=== PATIENT | female | born 1995 | race Caucasian/White ===

== ENCOUNTER 2017-11-05 12:03 | Emergency (ER) | payer SELFPAY ==
[2017-11-05 12:15] VITALS: TEMP 97.3; O2SAT 100
--- NOTE | 2017-11-05 12:59 | ED.PDOC ---
History of Present Illness - General Chief Complaint: Respiratory Problem Stated Complaint: trouble breathing,chest discomfort Time Seen by Provider: 11/05/17 12:24 Source: patient Exam Limitations: no limitations - History of Present Illness Comments: Alyce Pisano 21 y/o female seen in er today with sharp chest pains ,left arm shaky,pain numbness left leg,has also non productive cough since yesterday afternoon.no chronic medical problems,no ill contact Timing/Duration: yesterday Cough Quality/Degree: dry cough Possible Cause: no prior episodes Improving Factors: nothing Worsening Factors: nothing Associated Symptoms: other - see hpi Respiratory Risk Factors: no cause identified Allergies/Adverse Reactions: Allergies Sulfa Antibiotics Allergy (Verified 11/05/17 12:15) Home Medications: Ambulatory Orders NK [NK] 11/05/17 Review of Systems - Review of Systems Constitutional: States: no symptoms reported EENTM: States: no symptoms reported Respiratory: States: see HPI Cardiology: States: see HPI Gastrointestinal/Abdominal: States: no symptoms reported Genitourinary: States: no symptoms reported Musculoskeletal: States: no symptoms reported Skin: States: no symptoms reported Neurological: States: no symptoms reported All other Systems: Reviewed and Negative, No Change from Baseline Past Medical History (General) - Patient Medical History Hx Asthma: No Hx Congestive Heart Failure: No Hx Diabetes: No Surgical History: no surgical history - Vaccination History Hx Influenza Vaccination: Yes - Social History Hx Tobacco Use: No - Female History Patient is a Female of Child Bearing Age (10 -59 yrs old): Yes Hx Last Menstrual Period: 10/28/17 Patient : No Family Medical History - Family History Mother Family History: Unknown Living Status: Unknown Physical Exam - Physical Exam General Appearance: Alert, Comfortable, No apparent distress Eye Exam: bilateral normal ENT Exam: normal ENT inspection, TMs normal, pharynx normal Neck: non-tender, full range of motion, supple Respiratory: chest non-tender, lungs clear, normal breath sounds Cardiovascular/Chest: normal peripheral pulses, regular rate, rhythm, no murmur Gastrointestinal/Abdominal: normal bowel sounds, non tender, soft, no organomegaly Extremity: normal range of motion, normal inspection, no calf tenderness Neurologic: no motor/sensory deficits, alert, normal mood/affect, oriented x 3 Skin Exam: normal color, warm/dry Progress - Progress Progress: 11/05/17 13:09 Last Vital Signs Temp 97.3 F L 11/05/17 12:12 Pulse 101 H 11/05/17 12:12 Resp 16 11/05/17 12:21 BP 148/59 11/05/17 12:12 Pulse Ox 100 11/05/17 12:12 - Results/Orders Results/Orders: Laboratory Tests 11/05/17 11/05/17 11/05/17 13:36 13:36 13:36 WBC 9.0 RBC 4.94 Hgb 13.5 Hct 40.5 MCV 81.8 MCH 27.2 MCHC 33.3 RDW 13.9 Plt Count 282 MPV 8.9 Absolute Neuts (auto) 6.20 Absolute Lymphs (auto) 1.90 Absolute Monos (auto) 0.90 H Absolute Eos (auto) 0.10 Absolute Basos (auto) 0.00 Neutrophils % 68.2 Lymphocytes % 20.8 Monocytes % 9.7 H Eosinophils % 0.8 L Basophils % 0.5 D-Dimer, Quantitative Sodium 141 Potassium 3.6 Chloride 107 Carbon Dioxide 26 Anion Gap 11.6 L BUN 9 Creatinine 0.64 BUN/Creatinine Ratio 14.1 Random Glucose 82 Serum Osmolality 279.0 Calcium 9.5 Total Bilirubin 0.2 AST 19 ALT 13 Alkaline Phosphatase 73 L Serum Total Protein 7.8 Albumin 4.0 Globulin 3.8 H Albumin/Globulin Ratio 1.1 Serum HCG, Qual Urine Color Urine Appearance Urine pH Ur Specific [place] Urine Protein Urine Glucose (UA) Urine Ketones Urine Blood Urine Nitrite Urine Bilirubin Urine Urobilinogen Ur Leukocyte Esterase Urine RBC Urine WBC Ur Epithelial Cells Amorphous Sediment Urine Bacteria Urine Opiates Screen Negative Urine Barbiturates Negative Ur Phencyclidine Scrn Negative U Amphetamin/Meth Scrn Negative U Benzodiazepines Scrn Negative U Cocaine Metab Screen Negative U Cannabinoids Screen Negative 11/05/17 11/05/17 11/05/17 13:36 13:36 13:36 WBC RBC Hgb Hct MCV MCH MCHC RDW Plt Count MPV Absolute Neuts (auto) Absolute Lymphs (auto) Absolute Monos (auto) Absolute Eos (auto) Absolute Basos (auto) Neutrophils % Lymphocytes % Monocytes % Eosinophils % Basophils % D-Dimer, Quantitative < 200 Sodium Potassium Chloride Carbon Dioxide Anion Gap BUN Creatinine BUN/Creatinine Ratio Random Glucose Serum Osmolality Calcium Total Bilirubin AST ALT Alkaline Phosphatase Serum Total Protein Albumin Globulin Albumin/Globulin Ratio Serum HCG, Qual Negative Urine Color Yellow Urine Appearance Clear Urine pH 8.5 H Ur Specific [place] 1.015 Urine Protein Negative Urine Glucose (UA) Negative Urine Ketones Negative Urine Blood Trace-intact H Urine Nitrite Negative Urine Bilirubin Negative Urine Urobilinogen 0.2 Ur Leukocyte Esterase Negative Urine RBC 1-3 Urine WBC 3-5 H Ur Epithelial Cells 10-20 Amorphous Sediment 1+ Urine Bacteria 1+ Urine Opiates Screen Urine Barbiturates Ur Phencyclidine Scrn U Amphetamin/Meth Scrn U Benzodiazepines Scrn U Cocaine Metab Screen U Cannabinoids Screen - EKG/XRAY/CT XRAY: chest - normal chest Departure - Departure Clinical Impression: Viral illness Time of Disposition: 14:28 Disposition: Discharge to Home or Self Care Condition: Good Departure Forms: ED Discharge - Pt. Copy, Patient Portal Self Enrollment Diet: other - small frequent meal.increase oral fluid intake ,may take Tylenol 500 mg one tablet 4 x a day as needed for discomfort Home Medications: Ambulatory Orders NK [NK] 11/05/17
[2017-11-05] MEDS ORDERED: LACTATED RINGERS 1,000 ML IVS ONE (13:10)
--- NOTE | 2017-11-05 13:38 | RAD ---
EXAM DESCRIPTION: Chest,2 Views CLINICAL HISTORY: pain COMPARISON: None TECHNIQUE: PA/lateral FINDINGS: The lungs are well expanded and clear. No infiltrates or effusions or masses are noted. The heart is normal in size and shape with no evidence of vascular congestion. The magen and mediastinum demonstrate normal contours. The bony spine and chest wall is normal for age in appearance. IMPRESSION: Normal chest, two views Electronically signed by: Gurwinder Kendall MD 11/05/2017 1:37 PM [employer] C[employer]IV[employer]
[2017-11-05] MEDS ORDERED: ALUM & MAG HYDROX-SIMETHICONE 30 ML, LIDOCAINE VISCOUS 2% 15 ML PO ONE ×2 (14:05)
[2017-11-05] MEDS ORDERED: SUCRALFATE 1 GM/10 ML 1 GM UD PO ONE (14:05)
[2017-11-05] MEDS ORDERED: LIDOCAINE HCL 2% (MOUTH-THROAT) 15 ML UD ONE (14:12)
[2017-11-05] MEDS ORDERED: ALUM & MAG HYDROX-SIMETHICONE 30 ML UD ONE (14:12)
[2017-11-05 14:58] VITALS: BP 139/60
== END 2017-11-05 14:56 | disposition home or self-care (01) ==
LOC: ER 12:03
DX: B34.9 Viral infection, unspecified (principal); Z88.2 Allergy status to sulfonamides
CPT/HCPCS: 36415; 71020; 80053; 80307; 81001; 84703; 85025; 85379; 93005; J7120

== ENCOUNTER 2018-03-20 20:43 | Emergency (ER) | payer OTHER ==
[2018-03-20 20:49] VITALS: TEMP 99; O2SAT 99
[2018-03-20] MEDS ORDERED: HYDROCOD/APAP 5/325 (ER DISP) #3 TAB PO ONE (20:52)
[2018-03-20] MEDS ORDERED: PROMETHAZINE HCL 25 MG TAB PO ONE (20:52)
[2018-03-20] MEDS ORDERED: HYDROcodone 5MG/APAP 325MG 1 EA TAB PO ONE (21:01)
[2018-03-20] MEDS ORDERED: SODIUM CHLORIDE 0.9% 1000ML 1,000 ML IVS ONE (21:59)
--- NOTE | 2018-03-20 22:59 | ED.PDOC ---
History of Present Illness - General Chief Complaint: Headache Stated Complaint: Headache w/nausea Time Seen by Provider: 03/20/18 20:46 Source: patient Exam Limitations: no limitations - History of Present Illness Initial Comments: The patient is a 22-year-old female presenting to the emergency room secondary to headache with some associated nauseastarting midmorning today. No fevers. No sore throat or runny nose. No actual vomiting. No syncope. She has felt dizzy at times. Additional questioning shows that the patient has had significant heat exposure with limited liquid intake over the last 2 days. No diarrhea. No abdominal pain. No vision taste or smell changes. No nuchal rigidity. No meningeal signs. No altered mental status. Timing/Duration: unsure Severity: moderate Improving Factors: nothing Worsening Factors: movement Associated Symptoms: headaches, malaise, nausea/vomiting Allergies/Adverse Reactions: Allergies Sulfa Antibiotics Allergy (Verified 03/20/18 20:47) Home Medications: Ambulatory Orders Ciprofloxacin [Cipro] 500 mg PO BID #14 tab 03/20/18 Review of Systems - Review of Systems Constitutional: States: malaise EENTM: States: no symptoms reported Respiratory: States: no symptoms reported Cardiology: States: no symptoms reported Gastrointestinal/Abdominal: States: nausea Genitourinary: States: no symptoms reported Musculoskeletal: States: no symptoms reported Skin: States: no symptoms reported Neurological: States: headache Endocrine: States: no symptoms reported All other Systems: No Change from Baseline Past Medical History (General) - Patient Medical History Hx Stroke: No Hx Asthma: No Hx Congestive Heart Failure: No Hx Diabetes: No Surgical History: no surgical history - Vaccination History Hx Influenza Vaccination: Yes - 2017 - Social History Hx Tobacco Use: No - Female History Patient is a Female of Child Bearing Age (10 -59 yrs old): Yes Hx Last Menstrual Period: 10/28/17 Patient : No Family Medical History - Family History Mother Family History: Unknown Living Status: Unknown Physical Exam - Physical Exam General Appearance: Alert, No apparent distress Eye Exam: bilateral normal Ears, Nose, Throat: hearing grossly normal, normal ENT inspection, normal pharynx Neck: non-tender, full range of motion, supple Respiratory: lungs clear, normal breath sounds, no respiratory distress, no accessory muscle use Cardiovascular/Chest: normal peripheral pulses, regular rate, rhythm, no edema Peripheral Pulses: radial,right: 2+, radial,left: 2+, dorsalis pedis,right: 2+, dorsalis pedis,left: 2+ Gastrointestinal/Abdominal: soft, other - mild suprapubic discomfort palpation. Back Exam: no CVA tenderness, no vertebral tenderness Extremity: normal range of motion, non-tender, normal inspection, no pedal edema , normal capillary refill Neurologic: block piler II-XII nml as tested, alert, normal mood/affect, oriented x 3 Skin Exam: normal color Comments: Vital Signs - 24 hr 03/20/18 03/20/18 03/20/18 20:47 21:19 22:00 Temperature 99.0 F Pulse Rate [ 76 84 74 Left Radial] Respiratory 20 20 18 Rate Blood Pressure 135/70 123/78 126/68 [Left Arm] O2 Sat by Pulse 99 99 99 Oximetry Progress - Progress Progress: 03/20/18 23:02 the patient's 22-year-old female presenting with a headache and some nausea and dizziness. This is likely multifactorial due to mild dehydration and heat exhaustion as well as a significant cystitis. The patient received her first dose of ciprofloxacin here for the cystitis and will be placed on 5 days twice daily. She also received a dose of normal saline as well as some nausea and pain medications for the headache and dehydration. She needs to keep herself well hydrated. The patient may be excused from work tomorrow. ER warnings were given for any significant worsening. She needs to follow-up with her primary care doctor later next week for a repeat urinalysis and follow-up of the urine culture. - Results/Orders Results/Orders: Laboratory Results - last 24 hr 03/20/18 03/20/18 21:55 21:55 Urine Color Yellow Urine Appearance Cloudy Urine pH 7.0 Ur Specific [place] 1.015 Urine Protein Negative Urine Glucose (UA) Negative Urine Ketones Negative Urine Blood Large H Urine Nitrite Negative Urine Bilirubin Negative Urine Urobilinogen 0.2 Ur Leukocyte Esterase Large H Urine RBC 40-50 H Urine WBC >100 H Ur Epithelial Cells 10-20 Urine Bacteria 2+ H Urine Mucus Trace Urine HCG, Qual Negative Departure - Departure Clinical Impression: Cystitis Heat exhaustion Qualifiers: Encounter type: initial encounter Qualified Code(s): T67.5XXA - Heat exhaustion , unspecified, initial encounter Disposition: Discharge to Home or Self Care Condition: Fair Departure Forms: ED Discharge - Pt. Copy, Patient Portal Self Enrollment Instructions: DI for Headache, DI for Heat Exhaustion and Heat Stroke, Urinary Tract Infection Diet: regular diet Activity: increase activity as tolerated Prescriptions: Ciprofloxacin [Cipro] 500 mg PO BID #14 tab Home Medications: Ambulatory Orders Ciprofloxacin [Cipro] 500 mg PO BID #14 tab 03/20/18 Additional Instructions: the patient's 22-year-old female presenting with a headache and some nausea and dizziness. This is likely multifactorial due to mild dehydration and heat exhaustion as well as a significant cystitis. The patient received her first dose of ciprofloxacin here for the cystitis and will be placed on 5 days twice daily. She also received a dose of normal saline as well as some nausea and pain medications for the headache and dehydration. She needs to keep herself well hydrated. The patient may be excused from work tomorrow. ER warnings were given for any significant worsening. She needs to follow-up with her primary care doctor later next week for a repeat urinalysis and follow-up of the urine culture.
[2018-03-20] MEDS ORDERED: CIPROFLOXACIN 500 MG TAB PO ONE (23:01)
[2018-03-20] MEDS: diazePAM 2 MG TAB PO ONE (23:13)
[2018-03-20 23:40] VITALS: BP 132/69
== END 2018-03-20 23:41 | disposition home or self-care (01) ==
LOC: ER 20:43
DX: T67.5XXA Heat exhaustion, unspecified, initial encounter (principal); R51 Headache; R11.0 Nausea; N30.00 Acute cystitis without hematuria; X30.XXXA Exposure to excessive natural heat, initial encounter; Y92.9 Unspecified place or not applicable
CPT/HCPCS: 81001; 81025; 87086; J7030; Q0169

== ENCOUNTER 2018-06-16 20:45 | Emergency (ER) | payer OTHER ==
[2018-06-16 21:28] VITALS: O2SAT 100
--- NOTE | 2018-06-16 21:55 | ED.PDOC ---
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 SHE STATES IT WAS REMOVED DUE TO CRAMPING AND IT WAS IN PAST SCHEDULED TIME FOR REMOVAL. PT IS CONCERNED SHE HAS HAD CRAMPING LIKE SHE HAD BEFORE IT WAS REMOVED AND THEY ARE QUESTIONING WHETHER IT WAS ACTUALLY REMOVED OR NOT. - History of Present Illness Timing/Duration: other - TODAY Severity: mild - MILD CRAMPING AND MINIMAL BLEEDING ACCORDING TO PT. Improving Factors: nothing Worsening Factors: nothing Allergies/Adverse Reactions: Allergies Sulfa Antibiotics Allergy (Verified 06/16/18 21:28) Home Medications: Ambulatory Orders Ciprofloxacin [Cipro] 500 mg PO BID #14 tab 03/20/18 Review of Systems - Review of Systems Constitutional: Denies: chills, fever Gastrointestinal/Abdominal: States: abdominal pain. Denies: nausea, vomiting Genitourinary: States: other - SMALL AMOUNT OF VAGINAL BLEEDING. Denies: discharge, dysuria Skin: States: no symptoms reported Hematologic/Lymphatic: States: no symptoms reported Past Medical History (General) - Patient Medical History Hx Seizures: No Hx Stroke: No Hx Dementia: No Hx Asthma: No Hx of COPD: No Hx Cardiac Disorders: No Hx Congestive Heart Failure: No Hx Pacemaker: No Hx Hypertension: No Hx Thyroid Disease: No Hx Diabetes: No Hx Gastroesophageal Reflux: No Hx Renal Disease: No Hx Cancer: No Hx of HIV: No Hx Hepatitis C: No Hx MRSA: No Surgical History: no surgical history - Vaccination History Hx Tetanus, Diphtheria Vaccination: Yes Hx Influenza Vaccination: Yes - 2017 - Social History Hx Tobacco Use: No - Female History Hx Last Menstrual Period: 10/28/17 Patient : No Family Medical History - Family History Mother Family History: Unknown Living Status: Unknown Physical Exam - Physical Exam General Appearance: Alert, No apparent distress Eye Exam: bilateral normal Neck: non-tender, full range of motion, supple Respiratory: lungs clear, normal breath sounds Cardiovascular/Chest: regular rate, rhythm, no murmur Gastrointestinal/Abdominal: normal bowel sounds, non tender, soft Back Exam: normal inspection, no CVA tenderness Extremity: normal range of motion, non-tender Neurologic: alert, normal mood/affect Skin Exam: normal color, warm/dry Lymphatic: no adenopathy Comments: PT DECLINED PELVIC EXAM Progress - EKG/XRAY/CT XRAY: pelvis - ARTIFACT NOTED, NO IUD SEEN Departure - Departure Clinical Impression: IUD check up Time of Disposition: 22:27 Disposition: Discharge to Home or Self Care Condition: Excellent Departure Forms: ED Discharge - Pt. Copy, Patient Portal Self Enrollment Instructions: Intrauterine Device Removal Home Medications: Ambulatory Orders Ciprofloxacin [Cipro] 500 mg PO BID #14 tab 03/20/18
--- NOTE | 2018-06-16 22:12 | RAD ---
PROCEDURE: Pelvis Clinical History: FEELS LIKE SHE HAS RETAINED IUD Indication: Same as above Comparison: None . Technique: Single frontal view of the pelvis Findings: There is no evidence of acute fractures or dislocations involving the bones of the pelvis including the bilateral hip joints, the visualized proximal femora and the sacrum. There is an obliquely placed rectangular density projected over the coccyx, of uncertain etiology. This density does not have an appearance of typical IUD Impression: There is an obliquely placed rectangular density projected over the coccyx, of uncertain etiology. This density does not have an appearance of typical IUD If concern exists that this density represents an artifact, repeat imaging can be done Electronically signed by: Oleksandr Lemus MD 06/16/2018 10:11 PM CDT Workstation: [id number]
[2018-06-16 22:47] VITALS: BP 114/72; TEMP 97.9
== END 2018-06-16 22:47 | disposition home or self-care (01) ==
LOC: ER 20:45
DX: R10.2 Pelvic and perineal pain (principal); N93.9 Abnormal uterine and vaginal bleeding, unspecified; Z98.890 Other specified postprocedural states; Z88.2 Allergy status to sulfonamides